=== PATIENT | male | born 1945 | race Caucasian/White ===

== ENCOUNTER 2020-12-22 09:00 | Inpatient (IN) ==
[2020-12-22] MEDS ORDERED: GLUCAGON 1 MG VIAL IM PRN (09:10)
[2020-12-22] MEDS ORDERED: DEXTROSE 50% 25 GM/50 ML VIAL IV PRN (09:10)
[2020-12-22] MEDS ORDERED: CHLORHEXIDINE 4% SOLN 118 ML BOTTLE TOP SCH (09:13)
[2020-12-22] MEDS ORDERED: SODIUM CHLORIDE 0.9% 1,000 ML IV SCH (09:30)
[2020-12-22 10:03] LABS: Basophils % 0.7 % (0.0-0.8); Eosinophils # 0.2 10*3/uL (0.0-0.87); Hematocrit 42.1 VOL% (42.0-52.0); Hemoglobin 13.8 GM/DL (14.0-18.0); Immature Granulocytes % 0.3 %; Immature Granulocytes Absolute 0.02 #; Lymphocytes # 1.2 10*3/uL (1.4-4.0); Lymphocytes % 19.2 % (21.2-54.2); Mean Corpuscular HGB Conc 32.8 GM/DL (32-36); Mean Corpuscular Volume 99.3 FL (87-102); Mean Platelet Volume 10.3 FL (9.6-12.0); Monocytes % 7.5 % (1.7-12.7); Neutrophils % 69.3 % (38.7-73.9); Platelet Count 130 T/CUMM (130-400); Red Blood Count 4.24 MC/CUMM (3.8-5.5); Red Cell Distribution Width 12.9 % (9.3-17.3)
[2020-12-22 10:19] LABS: Albumin 3.4 G/DL (3.4-5.0); Bilirubin,Total 0.7 MG/DL (0.20-1.00); Calcium 9.1 MG/DL (8.5-10.1); Osmolality,Calculated 286.1 MOS/KG (273-304); Potassium 4.1 MMOL/L (3.5-5.1); Total Protein 6.8 G/DL (6.4-8.2)
[2020-12-22] MEDS: CHLORHEXIDINE 0.12% ORAL RINSE 60 ML BOTTLE SWISH/SPIT SCH ×2 (10:41→22:08)
[2020-12-22] MEDS ORDERED: CLORAZEPATE 3.75 MG TABLET PO PRN (11:57)
[2020-12-22] MEDS ORDERED: NITROGLYCERIN SL 0.4 MG TABLET SL PRN (11:58)
[2020-12-22] MEDS ORDERED: MORPHINE 2 MG/1 ML SYRINGE IV PRN (11:58)
[2020-12-22] MEDS: CHLORHEXIDINE 4% SOLN 118 ML BOTTLE TOP SCH ×2 (14:32→20:39)
[2020-12-22 15:19] LABS: ABG HCO3 23.2 MMOL/L (20-26); ABG PCO2 33.3 MM HG (35-48); ABG PO2 90.3 MM HG (80-95); ABG TCO2 24.2 MMOL/L (23-27)
[2020-12-22] MEDS ORDERED: DIAZEPAM 5 MG TABLET PO ONE (15:32)
[2020-12-22] MEDS ORDERED: PANTOPRAZOLE 40 MG TABLET PO ONE (15:32)
[2020-12-22] MEDS ORDERED: TAMSULOSIN 0.4 MG CAPSULE PO SCH (21:00)
[2020-12-22] MEDS ORDERED: DUTASTERIDE 0.5 MG CAPSULE PO SCH (21:00)
[2020-12-23] MEDS ORDERED: PAPAVERINE 60 MG/2 ML VIAL ONE (04:53)
[2020-12-23] MEDS ORDERED: VANCOMYCIN 500 MG VIAL ONE (04:54)
[2020-12-23] MEDS ORDERED: VANCOMYCIN 1,000 MG VIAL ONE (04:54)
[2020-12-23] MEDS ORDERED: CEFUROXIME INJ 1,500 MG in SODIUM CHLORIDE 0.9% 100 ML IV ONE (05:00)
[2020-12-23] MEDS ORDERED: SODIUM CHLORIDE 0.9% 1,000 ML IV SCH (05:30)
[2020-12-23] MEDS: CHLORHEXIDINE 4% SOLN 118 ML BOTTLE TOP SCH (06:00)
[2020-12-23] MEDS ORDERED: MIDAZOLAM 10 MG/2 ML VIAL ONE (06:00)
[2020-12-23] MEDS ORDERED: PANTOPRAZOLE 40 MG TABLET PO ONE (06:00)
[2020-12-23] MEDS ORDERED: DIAZEPAM 5 MG TABLET PO ONE (06:00)
[2020-12-23] MEDS ORDERED: LIDOCAINE 2% 5 ML VIAL ONE ×3 (06:01→10:02)
[2020-12-23] MEDS ORDERED: AMINOCAPROIC ACID 5,000 MG/20 ML VIAL ONE ×4 (06:01)
[2020-12-23] MEDS ORDERED: CALCIUM CHLORIDE 1,000 MG/10 ML VIAL IV ONE (06:01)
[2020-12-23] MEDS ORDERED: SUFentanil 250 MCG/5 ML AMP ONE (06:01)
[2020-12-23] MEDS ORDERED: VECURONIUM 10 MG VIAL IV ONE ×4 (06:01→09:43)
[2020-12-23] MEDS ORDERED: ETOMIDATE 40 MG/20 ML VIAL IV ONE (06:01)
[2020-12-23] MEDS ORDERED: SODIUM CHLORIDE 0.9% 250 ML IV ONE (06:02)
[2020-12-23] MEDS ORDERED: SODIUM CHLORIDE 0.9% 1,000 ML IV ONE (06:02)
[2020-12-23] MEDS ORDERED: PHENYLEPHRINE DRIP 20 MG/250 ML PREMIX IV ONE (06:02)
[2020-12-23] MEDS ORDERED: LACTATED RINGERS 1,000 ML IV ONE (06:02)
[2020-12-23] MEDS ORDERED: HEPARIN/NACL 0.9% 2 UNITS/ML 1,000 UNIT/500 ML BAG IV ONE (06:02)
[2020-12-23] MEDS ORDERED: PHENYLEPHRINE 1 MG/10 ML SYRINGE IV ONE (06:02)
[2020-12-23] MEDS ORDERED: ePHEDrine 50 MG/ML VIAL ONE (07:00)
[2020-12-23 07:36] LABS: ABG Base Excess -1.8 MMOL/L (-2.5-2.5); ABG HCO3 22.9 MMOL/L (20-26); ABG Oxygen Saturation 99.8 % (95-100); ABG PCO2 35.2 MM HG (35-48); ABG PH 7.408 (7.35-7.45); ABG TCO2 19.3 MMOL/L (23-27); Glucose Heart Surgery 131 MG/DL (74-106); Hematocrit Heart Surgery 40.7 PERCENT (42-52); Hemoglobin Heart Surgery 13.2 G/DL (14.0-18.0); Ionized Calcium Arterial 1.23 MMOL/L (1.21-1.46); PCO2 Patient Temp Arterial 35.2 MMHG; PH Patient Temp Arterial 7.408; Patient Temperature 37 CELCIUS; Sodium Heart/CVR 140 MMOL/L (135-145)
[2020-12-23 07:43] LABS: Bilirubin,Urine Negative (Negative); Blood, Urine Small mg/dL (Negative); Glucose,Urine (UA) Negative (Negative); Ketones,Urine Negative (Negative); Mucus,Urine Occasional /LPF (Occasional); Nitrite,Urine Negative (Negative); Protein,Urine Negative; RBC,Urine 3 /HPF (0-4); Urine Appearance CLEAR (Clear); Urine Color Yellow (Yellow); Urine Specific Gravity 1.013 (1.001-1.035); Urine Urobilinogen < 2.0 EU/DL (0.2-1.0)
[2020-12-23] MEDS ORDERED: AMIODARONE 150 MG/3 ML VIAL ONE (08:49)
[2020-12-23 09:05] LABS: Hematocrit Heart Surgery 28.1 PERCENT (42-52); Hemoglobin Heart Surgery 9.1 G/DL (14.0-18.0); PCO2 Patient Temp Venous 29.6 MM HG; PH Patient Temp Venous 7.46; PO2 Patient Temp Venous 42.1 MM HG; Potassium Heart/CVR 4.7 MMOL/L (3.5-5.1); VBG Base Excess -2.1 MEQ/L (0-4); VBG HCO3 22.5 MEQ/L (24-28); VBG Oxygen Saturation 86.5 %; VBG PCO2 34.2 MMHG (41-51); VBG PH 7.415; VBG PO2 51.7 MMHG (17-40); VBG Total CO2 20.2 MMOL/L
[2020-12-23] MEDS ORDERED: PHENYLEPHRINE DRIP 40 MG/250 ML PREMIX IV ONE (09:22)
[2020-12-23] MEDS ORDERED: SODIUM BICARBONATE 50 MEQ/50 ML VIAL IV ONE ×2 (09:22→10:03)
[2020-12-23] MEDS ORDERED: POTASSIUM CHLORIDE RIDER 20 MEQ/100 ML PREMIX IV ONE (09:22)
[2020-12-23] MEDS ORDERED: NITROPRUSSIDE 50 MG/2 ML VIAL ONE (09:22)
[2020-12-23] MEDS ORDERED: CALCIUM CHLORIDE 1,000 MG/10 ML SYRINGE IV ONE (09:23)
[2020-12-23] MEDS ORDERED: ALBUMIN 5% 25.0 GM/500 ML VIAL IV ONE (09:23)
[2020-12-23 09:35] LABS: Hematocrit Heart Surgery 29.6 PERCENT (42-52); Hemoglobin Heart Surgery 9.6 G/DL (14.0-18.0); PCO2 Patient Temp Venous 33.2 MM HG; PH Patient Temp Venous 7.4; PO2 Patient Temp Venous 43.2 MM HG; Potassium Heart/CVR 4.6 MMOL/L (3.5-5.1); VBG Base Excess -3.6 MEQ/L (0-4); VBG HCO3 21.2 MEQ/L (24-28); VBG PCO2 38.3 MMHG (41-51); VBG PH 7.357; VBG Total CO2 19.8 MMOL/L
[2020-12-23] MEDS ORDERED: ALBUMIN 25% 25 GM/100 ML VIAL IV ONE (10:02)
[2020-12-23] MEDS ORDERED: methylPREDNISolone SOD SUC 1,000 MG/8 ML VIAL ONE (10:02)
[2020-12-23] MEDS ORDERED: MAGNESIUM SULFATE 5 GM/10 ML VIAL IV ONE (10:02)
[2020-12-23] MEDS ORDERED: MANNITOL 100 GM/500 ML BAG IV ONE (10:02)
[2020-12-23] MEDS ORDERED: DEXTROSE 5% KCL 20 MEQ 20 MEQ/1,000 ML BAG IV ONE (10:02)
[2020-12-23] MEDS ORDERED: FUROSEMIDE 20 MG/2 ML VIAL ONE (10:03)
[2020-12-23] MEDS ORDERED: HEPARIN 10,000 UNIT/10 ML VIAL ONE (10:03)
[2020-12-23] MEDS ORDERED: PROTAMINE SULFATE 250 MG/25 ML VIAL IV ONE (10:03)
[2020-12-23 10:12] LABS: ABG HCO3 21.5 MMOL/L (20-26); ABG Oxygen Saturation 98.2 % (95-100); ABG PCO2 32.3 MM HG (35-48); ABG PH 7.441 (7.35-7.45); ABG PO2 171.4 MM HG (80-95); ABG TCO2 22.5 MMOL/L (23-27); Glucose Heart Surgery 240 MG/DL (74-106); Hemoglobin Heart Surgery 11.2 G/DL (14.0-18.0); Ionized Calcium Arterial 1.12 MMOL/L (1.21-1.46); PCO2 Patient Temp Arterial 32.3 MMHG; PH Patient Temp Arterial 7.441; PO2 Patient Temp Arterial 171.4 MM HG; Patient Temperature 37 CELCIUS; Potassium Heart/CVR 4.4 MMOL/L (3.5-5.1); Sodium Heart/CVR 131 MMOL/L (135-145)
[2020-12-23] MEDS ORDERED: NITROGLYCERIN DRIP 50 MG/250 ML BOTTLE IV ONE ×2 (10:32→11:15)
[2020-12-23] MEDS ORDERED: SEVOFLURANE 1 UNIT/15 MINUTE INH ONE (11:05)
[2020-12-23] MEDS ORDERED: MIDAZOLAM 2 MG/2 ML VIAL IV PRN (11:09)
[2020-12-23] MEDS ORDERED: PHENYLEPHRINE DRIP 40 MG/250 ML PREMIX IV PRN (11:09)
[2020-12-23] MEDS ORDERED: ACETAMINOPHEN 650 MG SUPP RECTAL PRN (11:09)
[2020-12-23] MEDS ORDERED: VECURONIUM 10 MG VIAL IV PRN ×2 (11:09)
[2020-12-23] MEDS ORDERED: CHLORHEXIDINE 4% SOLN 118 ML BOTTLE TOP PRN (11:09)
[2020-12-23] MEDS ORDERED: MAGNESIUM SULF RIDER 2 GM/50 ML PREMIX IV PRN (11:09)
[2020-12-23] MEDS ORDERED: MIDAZOLAM 10 MG/2 ML VIAL IV PRN (11:09)
[2020-12-23] MEDS ORDERED: NITROPRUSSIDE 100 MG in DEXTROSE 5% 250 ML IV PRN (11:09)
[2020-12-23] MEDS ORDERED: MAGNESIUM SULF RIDER 4 GM/100 ML PREMIX IV PRN (11:09)
[2020-12-23] MEDS ORDERED: SODIUM CHLORIDE 0.45% 1,000 ML IV SCH ×2 (11:09)
[2020-12-23] MEDS ORDERED: ONDANSETRON 4 MG/2 ML VIAL IV PRN (11:09)
[2020-12-23] MEDS ORDERED: INSULIN REGULAR 100 UNIT/ML IV ONE (11:09)
[2020-12-23] MEDS ORDERED: CALCIUM CHLORIDE 1,000 MG/10 ML SYRINGE IV PRN (11:09)
[2020-12-23] MEDS ORDERED: INSULIN REGULAR 100 UNIT/ML IV PRN (11:09)
[2020-12-23] MEDS ORDERED: DEXTROSE 50% 25 GM/50 ML VIAL IV PRN ×2 (11:09)
[2020-12-23] MEDS ORDERED: INSULIN REGULAR DRIP 100 ML IV SCH (11:09)
[2020-12-23 11:15] LABS: ABG HCO3 22.1 MMOL/L (20-26); ABG Oxygen Saturation 97.8 % (95-100); ABG PCO2 35.6 MM HG (35-48); ABG PH 7.411 (7.35-7.45); ABG PO2 111.3 MM HG (80-95); ABG TCO2 23.2 MMOL/L (23-27); Glucose Heart Surgery 214 MG/DL (74-106); Hemoglobin Heart Surgery 12.5 G/DL (14.0-18.0)
[2020-12-23 11:18] LABS: Basophils % 0.2 % (0.0-0.8); Eosinophils # 0.1 10*3/uL (0.0-0.87); Eosinophils % 1.6 % (0.00-10.9); Hematocrit 33.4 VOL% (42.0-52.0); Hemoglobin 11.6 GM/DL (14.0-18.0); Immature Granulocytes % 0.7 %; Immature Granulocytes Absolute 0.06 #; Lymphocytes # 0.7 10*3/uL (1.4-4.0); Lymphocytes % 7.8 % (21.2-54.2); Mean Corpuscular HGB Conc 34.7 GM/DL (32-36); Mean Corpuscular Volume 96.3 FL (87-102); Mean Platelet Volume 10.4 FL (9.6-12.0); Monocytes % 4.5 % (1.7-12.7); Neutrophils % 85.2 % (38.7-73.9); Platelet Count 120 T/CUMM (130-400); Red Blood Count 3.47 MC/CUMM (3.8-5.5); Red Cell Distribution Width 12.9 % (9.3-17.3); White Blood Count 8.7 T/CUMM (4-12)
[2020-12-23] MEDS: LACTATED RINGERS 250 ML IV PRN ×2 (11:20→13:41)
[2020-12-23] MEDS ORDERED: NITROGLYCERIN DRIP 50 MG/250 ML BOTTLE IV PRN (11:21)
[2020-12-23] MEDS: CHLORHEXIDINE 0.12% ORAL RINSE 60 ML BOTTLE SWISH/SPIT SCH ×2 (11:23→21:42)
[2020-12-23 11:27] LABS: INR 1.1; PT Patient Result 12.3 SECS (10.5-12.0); Partial Thromboplastin Time 28.3 SECS (23.9-33.8)
[2020-12-23 11:32] LABS: Albumin 3.3 G/DL (3.4-5.0); CKMB % 4.8 %; Osmolality,Calculated 282.7 MOS/KG (273-304); Total Protein 5.6 G/DL (6.4-8.2)
[2020-12-23 11:37] LABS: High Sensitive Troponin I* 1534.7 ng/L (0-78)
[2020-12-23] MEDS: POTASSIUM CHLORIDE RIDER 20 MEQ/100 ML PREMIX IV PRN ×4 (12:24→23:03)
[2020-12-23 13:43] LABS: ABG Base Excess -1.5 MMOL/L (-2.5-2.5); ABG HCO3 23.2 MMOL/L (20-26); ABG Oxygen Saturation 97.9 % (95-100); ABG PCO2 34.1 MM HG (35-48); ABG PH 7.423 (7.35-7.45); ABG PO2 96.3 MM HG (80-95); ABG TCO2 19.6 MMOL/L (23-27); Glucose Heart Surgery 182 MG/DL (74-106); Hematocrit Heart Surgery 38.1 PERCENT (42-52); Hemoglobin Heart Surgery 12.4 G/DL (14.0-18.0); Potassium Heart/CVR 3.8 MMOL/L (3.5-5.1)
[2020-12-23] MEDS: ALBUMIN 5% 12.5 GM/250 ML VIAL IV PRN ×3 (13:52→21:30)
[2020-12-23] MEDS: POTASSIUM CHLORIDE RIDER 10 MEQ/100 ML PREMIX IV PRN (15:19)
[2020-12-23] MEDS ORDERED: DEXMEDETOMIDINE 200 MCG in SODIUM CHLORIDE 0.9% 48 ML IV PRN (15:29)
[2020-12-23] MEDS ORDERED: MEPERIDINE 50 MG/1 ML VIAL IV ONE (15:35)
[2020-12-23] MEDS: KETOROLAC 15 MG/1 ML VIAL IV SCH ×2 (15:47→21:55)
[2020-12-23] MEDS: CEFUROXIME INJ 1,500 MG in SODIUM CHLORIDE 0.9% 100 ML IV SCH (17:41)
[2020-12-23 18:18] LABS: ABG Base Excess -1.8 MMOL/L (-2.5-2.5); ABG HCO3 22.9 MMOL/L (20-26); ABG Oxygen Saturation 98.3 % (95-100); ABG PCO2 38.5 MM HG (35-48); ABG PH 7.384 (7.35-7.45); ABG TCO2 20.3 MMOL/L (23-27); Glucose Heart Surgery 127 MG/DL (74-106); Hematocrit Heart Surgery 37.5 PERCENT (42-52); Hemoglobin Heart Surgery 12.2 G/DL (14.0-18.0)
[2020-12-23 19:33] LABS: ABG HCO3 22.8 MMOL/L (20-26); ABG PCO2 36.3 MM HG (35-48); ABG PH 7.397 (7.35-7.45); ABG TCO2 19.8 MMOL/L (23-27); Glucose Heart Surgery 138 MG/DL (74-106); Hematocrit Heart Surgery 37.1 PERCENT (42-52); Potassium Heart/CVR 4.4 MMOL/L (3.5-5.1)
[2020-12-23 20:04] LABS: High Sensitive Troponin I* 2850.2 ng/L (0-78)
[2020-12-23] MEDS ORDERED: FUROSEMIDE 40 MG/4 ML VIAL IV PRN (21:09)
[2020-12-23] MEDS: MORPHINE 10 MG/1 ML VIAL IV PRN (21:42)
[2020-12-23 21:55] LABS: ABG Base Excess -1.3 MMOL/L (-2.5-2.5); ABG HCO3 23.3 MMOL/L (20-26); ABG Oxygen Saturation 98.9 % (95-100); ABG PCO2 34.6 MM HG (35-48); ABG PH 7.422 (7.35-7.45); ABG TCO2 19.9 MMOL/L (23-27); Glucose Heart Surgery 123 MG/DL (74-106); Hematocrit Heart Surgery 37.3 PERCENT (42-52); Hemoglobin Heart Surgery 12.1 G/DL (14.0-18.0); Potassium Heart/CVR 4.1 MMOL/L (3.5-5.1)
[2020-12-23 22:56] LABS: ABG Base Excess -0.8 MMOL/L (-2.5-2.5); ABG HCO3 23.3 MMOL/L (20-26); ABG Oxygen Saturation 97.2 % (95-100); ABG PCO2 36.7 MM HG (35-48); ABG PH 7.421 (7.35-7.45); ABG PO2 101.6 MM HG (80-95); ABG TCO2 24.5 MMOL/L (23-27); Glucose Heart Surgery 105 MG/DL (74-106); Hemoglobin Heart Surgery 11.2 G/DL (14.0-18.0)
[2020-12-24] MEDS: MORPHINE 10 MG/1 ML VIAL IV PRN (00:02)
[2020-12-24 00:59] LABS: ABG Base Excess -0.4 MMOL/L (-2.5-2.5); ABG HCO3 24.1 MMOL/L (20-26); ABG Oxygen Saturation 97.6 % (95-100); ABG PCO2 38.7 MM HG (35-48); ABG PH 7.412 (7.35-7.45); ABG PO2 109.7 MM HG (80-95); ABG TCO2 25.3 MMOL/L (23-27); Glucose Heart Surgery 96 MG/DL (74-106); Hemoglobin Heart Surgery 11.1 G/DL (14.0-18.0); Potassium Heart/CVR 4.1 MMOL/L (3.5-5.1)
[2020-12-24 02:24] LABS: ABG Base Excess -0.4 MMOL/L (-2.5-2.5); ABG HCO3 23.4 MMOL/L (20-26); ABG Oxygen Saturation 96.9 % (95-100); ABG PCO2 35.2 MM HG (35-48); ABG PO2 93.6 MM HG (80-95); ABG TCO2 24.5 MMOL/L (23-27); Glucose Heart Surgery 121 MG/DL (74-106); Hemoglobin Heart Surgery 11.8 G/DL (14.0-18.0); Potassium Heart/CVR 3.9 MMOL/L (3.5-5.1)
[2020-12-24] MEDS: POTASSIUM CHLORIDE RIDER 20 MEQ/100 ML PREMIX IV PRN ×2 (02:38→05:10)
[2020-12-24] MEDS: POTASSIUM CHLORIDE RIDER 10 MEQ/100 ML PREMIX IV PRN (03:08)
[2020-12-24 03:30] LABS: Basophils % 0.1 % (0.0-0.8); Hematocrit 31.2 VOL% (42.0-52.0); Hemoglobin 10.6 GM/DL (14.0-18.0); Immature Granulocytes % 0.6 %; Immature Granulocytes Absolute 0.08 #; Lymphocytes # 0.4 10*3/uL (1.4-4.0); Lymphocytes % 2.9 % (21.2-54.2); Mean Corpuscular Volume 96.9 FL (87-102); Mean Platelet Volume 10.3 FL (9.6-12.0); Monocytes % 4.9 % (1.7-12.7); Neutrophils % 91.5 % (38.7-73.9); Platelet Count 118 T/CUMM (130-400); Red Blood Count 3.22 MC/CUMM (3.8-5.5); Red Cell Distribution Width 13.1 % (9.3-17.3); White Blood Count 14.4 T/CUMM (4-12)
[2020-12-24 03:35] LABS: ABG Base Excess -0.2 MMOL/L (-2.5-2.5); ABG HCO3 23.9 MMOL/L (20-26); ABG Oxygen Saturation 97.6 % (95-100); ABG PCO2 36.7 MM HG (35-48); ABG PH 7.431 (7.35-7.45); ABG PO2 109.9 MM HG (80-95); Glucose Heart Surgery 133 MG/DL (74-106); Hemoglobin Heart Surgery 11.4 G/DL (14.0-18.0); Potassium Heart/CVR 4.8 MMOL/L (3.5-5.1)
[2020-12-24 03:54] LABS: CKMB % 3.3 %; High Sensitive Troponin I* 2494.6 ng/L (0-78)
[2020-12-24 04:07] LABS: Bilirubin,Direct 0.22 MG/DL (0.0-0.20); Bilirubin,Total 1.2 MG/DL (0.20-1.00); Osmolality,Calculated 284.4 MOS/KG (273-304); Potassium 4.8 MMOL/L (3.5-5.1); Total Protein 6.1 G/DL (6.4-8.2)
[2020-12-24] MEDS: KETOROLAC 15 MG/1 ML VIAL IV SCH ×5 (04:20→21:37)
[2020-12-24 05:14] LABS: ABG Base Excess -0.5 MMOL/L (-2.5-2.5); ABG HCO3 23.1 MMOL/L (20-26); ABG Oxygen Saturation 97.1 % (95-100); ABG PCO2 34.7 MM HG (35-48); ABG PH 7.442 (7.35-7.45); ABG PO2 95.5 MM HG (80-95); ABG TCO2 24.2 MMOL/L (23-27); Glucose Heart Surgery 144 MG/DL (74-106); Hemoglobin Heart Surgery 11.5 G/DL (14.0-18.0); Potassium Heart/CVR 4.2 MMOL/L (3.5-5.1)
[2020-12-24] MEDS: CEFUROXIME INJ 1,500 MG in SODIUM CHLORIDE 0.9% 100 ML IV SCH (06:23)
[2020-12-24 06:57] LABS: Platelet Estimate Adequate; Polychromasia Slight; Segmented Neutrophils 94 % (50-85); Total Cells Counted 100
[2020-12-24] MEDS: CHLORHEXIDINE 0.12% ORAL RINSE 60 ML BOTTLE SWISH/SPIT SCH ×2 (09:16→20:55)
[2020-12-24] MEDS ORDERED: MAGNESIUM SULF RIDER 2 GM/50 ML PREMIX IV PRN (09:32)
[2020-12-24] MEDS ORDERED: SODIUM CHLOR 0.45% KCL 20 MEQ 20 MEQ/1,000 ML BAG IV SCH (09:32)
[2020-12-24] MEDS ORDERED: CLORAZEPATE 3.75 MG TABLET PO PRN (09:32)
[2020-12-24] MEDS ORDERED: ACETAMINOPHEN 325 MG TABLET PO PRN (09:32)
[2020-12-24] MEDS ORDERED: NITROGLYCERIN SL 0.4 MG TABLET SL PRN (09:32)
[2020-12-24] MEDS ORDERED: ONDANSETRON 4 MG/2 ML VIAL IV PRN (09:32)
[2020-12-24] MEDS ORDERED: MAGNESIUM HYDROXIDE SUSP 30 ML UDCUP PO PRN (09:32)
[2020-12-24] MEDS ORDERED: ZALEPLON 5 MG CAPSULE PO PRN (09:32)
[2020-12-24] MEDS ORDERED: ALUMINUM/MAGNES/SIMETH MAX STR 30 ML UDCUP PO PRN (09:32)
[2020-12-24] MEDS ORDERED: oxyCODONE/ACETAMINOPHEN 5-325 MG TABLET PO PRN (09:32)
[2020-12-24] MEDS ORDERED: GLUCAGON 1 MG VIAL IM PRN ×2 (09:32)
[2020-12-24] MEDS ORDERED: MAGNESIUM SULF RIDER 4 GM/100 ML PREMIX IV PRN (09:32)
[2020-12-24] MEDS ORDERED: DEXTROSE 50% 25 GM/50 ML VIAL IV PRN ×2 (09:32)
[2020-12-24] MEDS: INSULIN REGULAR 100 UNIT/ML SUBCUT SCH ×3 (12:05→20:59)
[2020-12-24] MEDS: TAMSULOSIN 0.4 MG CAPSULE PO SCH (20:54)
[2020-12-24] MEDS: ASPIRIN CHEW 81 MG TABLET PO SCH (20:54)
[2020-12-24] MEDS: DUTASTERIDE 0.5 MG CAPSULE PO SCH (20:54)
[2020-12-24] MEDS: ATORVASTATIN 40 MG TABLET PO SCH (20:55)
[2020-12-24] MEDS ORDERED: METOPROLOL TARTRATE 25 MG TABLET PO SCH (21:00)
[2020-12-25] MEDS: KETOROLAC 15 MG/1 ML VIAL IV SCH ×4 (03:32→21:58)
[2020-12-25] MEDS ORDERED: FUROSEMIDE 40 MG/4 ML VIAL IV ONE (06:00)
[2020-12-25 06:48] LABS: Basophils % 0.1 % (0.0-0.8); Hematocrit 30.9 VOL% (42.0-52.0); Hemoglobin 10.3 GM/DL (14.0-18.0); Immature Granulocytes % 0.9 %; Immature Granulocytes Absolute 0.13 #; Lymphocytes % 6.7 % (21.2-54.2); Mean Corpuscular HGB Conc 33.3 GM/DL (32-36); Mean Corpuscular Volume 101.3 FL (87-102); Mean Platelet Volume 11.2 FL (9.6-12.0); Monocytes % 7.7 % (1.7-12.7); Neutrophils % 84.6 % (38.7-73.9); Platelet Count 124 T/CUMM (130-400); Red Blood Count 3.05 MC/CUMM (3.8-5.5); Red Cell Distribution Width 13.5 % (9.3-17.3); White Blood Count 14.9 T/CUMM (4-12)
[2020-12-25 07:06] LABS: Alanine Aminotransferase 15 U/L (16-61); Albumin 3.3 G/DL (3.4-5.0); Alkaline Phosphatase 40 U/L (45-117); Aspartate Amino Transferase 21 U/L (0-37); Bilirubin,Indirect 0.6 MG/DL (0.0-1.0); Blood Urea Nitrogen 29 MG/DL (7-18); Calcium 8.6 MG/DL (8.5-10.1); Carbon Dioxide 26 MMOL/L (21-32); Estimated Glom Filtration Rate 70 ML/MIN; Glucose 125 MG/DL (74-106); Osmolality,Calculated 287.3 MOS/KG (273-304); Potassium 4.3 MMOL/L (3.5-5.1); Sodium 141 MMOL/L (136-145); Total Protein 5.5 G/DL (6.4-8.2)
[2020-12-25] MEDS: INSULIN REGULAR 100 UNIT/ML SUBCUT SCH ×4 (08:38→21:20)
[2020-12-25] MEDS: PANTOPRAZOLE 40 MG TABLET PO SCH (08:44)
[2020-12-25] MEDS: amLODIPine 5 MG TABLET PO SCH (08:44)
[2020-12-25] MEDS: DOCUSATE SODIUM 100 MG CAPSULE PO SCH (08:44)
[2020-12-25] MEDS: AMIODARONE 200 MG TABLET PO SCH ×2 (08:44→21:57)
[2020-12-25] MEDS: lisinopriL 5 MG TABLET PO SCH (08:44)
[2020-12-25] MEDS: METOPROLOL TARTRATE 25 MG TABLET PO SCH ×2 (08:44→21:57)
[2020-12-25] MEDS: FERROUS SULFATE 325 MG TABLET PO SCH (09:36)
[2020-12-25 11:53] LABS: Platelet Estimate Adequate
[2020-12-25] MEDS: CHLORHEXIDINE 0.12% ORAL RINSE 60 ML BOTTLE SWISH/SPIT SCH ×2 (14:51→21:58)
[2020-12-25] MEDS ORDERED: TAMSULOSIN 0.4 MG CAPSULE PO SCH (21:00)
[2020-12-25] MEDS ORDERED: DUTASTERIDE 0.5 MG CAPSULE PO SCH (21:00)
[2020-12-25] MEDS: ASPIRIN CHEW 81 MG TABLET PO SCH (21:56)
[2020-12-25] MEDS: ATORVASTATIN 40 MG TABLET PO SCH (21:56)
[2020-12-25] MEDS: DUTASTERIDE 0.5 MG CAPSULE PO SCH (21:57)
[2020-12-25] MEDS: TAMSULOSIN 0.4 MG CAPSULE PO SCH (21:58)
[2020-12-26] MEDS: KETOROLAC 15 MG/1 ML VIAL IV SCH ×4 (03:45→20:35)
[2020-12-26 06:12] LABS: Basophils % 0.1 % (0.0-0.8); Eosinophils # 0.1 10*3/uL (0.0-0.87); Eosinophils % 0.6 % (0.00-10.9); Hemoglobin 10.5 GM/DL (14.0-18.0); Immature Granulocytes % 0.9 %; Lymphocytes # 1.3 10*3/uL (1.4-4.0); Lymphocytes % 11.7 % (21.2-54.2); Mean Corpuscular HGB Conc 32.8 GM/DL (32-36); Mean Corpuscular Volume 101.9 FL (87-102); Mean Platelet Volume 11.1 FL (9.6-12.0); Monocytes % 8.6 % (1.7-12.7); Neutrophils % 78.1 % (38.7-73.9); Platelet Count 125 T/CUMM (130-400); Red Blood Count 3.14 MC/CUMM (3.8-5.5); Red Cell Distribution Width 13.3 % (9.3-17.3); White Blood Count 10.8 T/CUMM (4-12)
[2020-12-26 06:37] LABS: Alanine Aminotransferase 16 U/L (16-61); Albumin 3.2 G/DL (3.4-5.0); Alkaline Phosphatase 46 U/L (45-117); Aspartate Amino Transferase 25 U/L (0-37); Bilirubin,Indirect 0.7 MG/DL (0.0-1.0); Blood Urea Nitrogen 32 MG/DL (7-18); Calcium 8.7 MG/DL (8.5-10.1); Carbon Dioxide 26 MMOL/L (21-32); Estimated Glom Filtration Rate 77 ML/MIN; Glucose 121 MG/DL (74-106); Osmolality,Calculated 288.3 MOS/KG (273-304); Potassium 3.8 MMOL/L (3.5-5.1); Sodium 141 MMOL/L (136-145); Total Protein 5.8 G/DL (6.4-8.2)
[2020-12-26] MEDS: INSULIN REGULAR 100 UNIT/ML SUBCUT SCH ×4 (09:09→20:36)
[2020-12-26] MEDS: AMIODARONE 200 MG TABLET PO SCH ×2 (09:39→20:35)
[2020-12-26] MEDS: POTASSIUM CHLORIDE 20 MEQ TABLET PO PRN ×2 (09:39→11:46)
[2020-12-26] MEDS: DOCUSATE SODIUM 100 MG CAPSULE PO SCH (09:39)
[2020-12-26] MEDS: FERROUS SULFATE 325 MG TABLET PO SCH (09:40)
[2020-12-26] MEDS: amLODIPine 5 MG TABLET PO SCH (09:40)
[2020-12-26] MEDS: lisinopriL 5 MG TABLET PO SCH (09:40)
[2020-12-26] MEDS: METOPROLOL TARTRATE 25 MG TABLET PO SCH ×2 (09:40→20:35)
[2020-12-26] MEDS: PANTOPRAZOLE 40 MG TABLET PO SCH (09:40)
[2020-12-26] MEDS: CHLORHEXIDINE 0.12% ORAL RINSE 60 ML BOTTLE SWISH/SPIT SCH ×2 (09:41→20:36)
[2020-12-26] MEDS: ASPIRIN CHEW 81 MG TABLET PO SCH (20:35)
[2020-12-26] MEDS: ATORVASTATIN 40 MG TABLET PO SCH (20:35)
[2020-12-26] MEDS: DUTASTERIDE 0.5 MG CAPSULE PO SCH (20:35)
[2020-12-26] MEDS: TAMSULOSIN 0.4 MG CAPSULE PO SCH (20:35)
[2020-12-27] MEDS: KETOROLAC 15 MG/1 ML VIAL IV SCH (04:24)
[2020-12-27 05:51] LABS: Calcium 8.8 MG/DL (8.5-10.1); Osmolality,Calculated 288.3 MOS/KG (273-304); Potassium 3.9 MMOL/L (3.5-5.1)
[2020-12-27 06:15] LABS: Basophils % 0.4 % (0.0-0.8); Eosinophils # 0.2 10*3/uL (0.0-0.87); Eosinophils % 2.7 % (0.00-10.9); Hematocrit 34.9 VOL% (42.0-52.0); Hemoglobin 12.1 GM/DL (14.0-18.0); Immature Granulocytes % 0.7 %; Immature Granulocytes Absolute 0.06 #; Lymphocytes # 1.4 10*3/uL (1.4-4.0); Lymphocytes % 16.9 % (21.2-54.2); Mean Corpuscular HGB Conc 34.7 GM/DL (32-36); Mean Corpuscular Volume 98.6 FL (87-102); Mean Platelet Volume 10.8 FL (9.6-12.0); Monocytes % 7.5 % (1.7-12.7); Neutrophils % 71.8 % (38.7-73.9); Platelet Count 128 T/CUMM (130-400); Red Blood Count 3.54 MC/CUMM (3.8-5.5); Red Cell Distribution Width 13.1 % (9.3-17.3); White Blood Count 8.1 T/CUMM (4-12)
[2020-12-27 06:30] LABS: Hypochromasia Slight; Microcytosis 1+; Platelet Estimate Adequate
[2020-12-27 08:44] VITALS: BP 136/71
[2020-12-27] MEDS: INSULIN REGULAR 100 UNIT/ML SUBCUT SCH ×2 (09:21→12:01)
[2020-12-27] MEDS: CHLORHEXIDINE 0.12% ORAL RINSE 60 ML BOTTLE SWISH/SPIT SCH (09:23)
[2020-12-27] MEDS: lisinopriL 5 MG TABLET PO SCH (09:23)
[2020-12-27] MEDS: amLODIPine 5 MG TABLET PO SCH (09:23)
[2020-12-27] MEDS: AMIODARONE 200 MG TABLET PO SCH (09:23)
[2020-12-27] MEDS: PANTOPRAZOLE 40 MG TABLET PO SCH (09:23)
[2020-12-27] MEDS: DOCUSATE SODIUM 100 MG CAPSULE PO SCH (09:23)
[2020-12-27] MEDS: METOPROLOL TARTRATE 25 MG TABLET PO SCH (09:23)
[2020-12-27] MEDS: FERROUS SULFATE 325 MG TABLET PO SCH (09:23)
== END 2020-12-27 12:23 | disposition home health service (06) | DRG 234 ==
LOC: N.TELEN 09:09 → N.CVR 12-23 10:31 → N.TELES 12-24 11:47